=== PATIENT | male | born 1950 | race Caucasian/White ===

== ENCOUNTER 2021-03-07 14:48 | Emergency (ER) | payer OTHER ==
[~2021-03-07] VITALS: Ht 177.8 cm; Wt 122.5 kg
[~2021-03-07 14:48] MED LIST: ASPI81EC PO; LISI20 PO; SERT100 PO
== END 2021-03-07 17:29 | disposition home or self-care (01) ==
LOC: ER 14:48
DX: S43.014A Anterior dislocation of right humerus, initial encounter (principal); I10 Essential (primary) hypertension; Z79.82 Long term (current) use of aspirin; Z79.899 Other long term (current) drug therapy; W10.8XXA Fall (on) (from) other stairs and steps, initial encounter
CPT/HCPCS: 23650; 73020; 73030; 96374; 96375; 99284-25; J1170; J2060

== ENCOUNTER 2022-03-09 09:28 | Inpatient (IN) | payer OTHER, MEDICARE ==
[~2022-03-09] VITALS: Ht 180.3 cm; Wt 122.4 kg
[2022-03-09 09:46] LABS: BASOPHILS ABSOLUTE AUTO 0.04 K/mm3 (0.00-0.23); BASOPHILS PERCENT AUTO 0 % (0-2); EOSINOPHILS ABSOLUTE AUTO 0.02 K/mm3 (0.00-0.68); EOSINOPHILS PERCENT AUTO 0 % (0-6); Hematocrit 39.9 % (37.0-53.0); Hemoglobin 13.2 g/dL (13.5-17.5); IMMATURE GRAN ABSOLUTE AUTO 0.08 K/mm3 (0.00-0.10); IMMATURE GRAN PERCENT AUTO 1 % (0-1); LYMPHOCYTES ABSOLUTE AUTO 1.08 K/mm3 (0.84-5.20); LYMPHOCYTES PERCENT AUTO 6 % (21-46); MONOCYTES ABSOLUTE AUTO 1.02 K/mm3 (0.16-1.47); MONOCYTES PERCENT AUTO 6 % (4-13); Mean Corpuscular HGB 27.7 pg (26.0-34.0); Mean Corpuscular HGB Conc 33.1 g/dL (31.5-36.5); Mean Corpuscular Volume 84 fL (80-100); Mean Platelet Volume 9.3 fL (9.1-12.4); NEUTROPHILS ABSOLUTE AUTO 15.13 K/mm3 (1.96-9.15); NEUTROPHILS PERCENT AUTO 87 % (41-73); Platelet Count 306 K/mm3 (150-400); RDW Standard Deviation 36.6 fL (35.1-46.3); Red Blood Cell Count 4.77 M/mm3 (4.30-5.90); White Blood Cell Count 17.37 K/mm3 (4.00-11.30)
[2022-03-09 10:21] LABS: Albumin, Blood 2.9 g/dL (3.4-5.0); Albumin/Globulin Ratio 0.6 (0.8-1.8); Bilirubin, Total 1.1 mg/dL (0.1-1.0); Bun/Creatinine Ratio 22.2 (12.0-20.0); Calcium, Blood 9.1 mg/dL (8.5-10.1); Creatinine, Blood 1.35 mg/dL (0.60-1.20); Globulin, Blood 4.6 g/dL (2.2-4.0); Potassium, Blood 4.3 mmol/L (3.5-5.5); Total Protein, Blood 7.5 g/dL (6.4-8.2)
[2022-03-09] MEDS ORDERED: BUPR75 PO (10:21)
[2022-03-09] MEDS ORDERED: VITAMIN D31000 UNIT PO (10:21)
[2022-03-09 10:35] LABS: Influenza A, PCR NEGATIVE (NEGATIVE); Influenza B, PCR NEGATIVE (NEGATIVE); Resp Syncytial Virus, PCR NEGATIVE (NEGATIVE)
[2022-03-09 10:41] LABS: SARS-Cov-2 (COVID-19) PCR, MMC POSITIVE (NEGATIVE)
--- NOTE | 2022-03-09 19:14 | NUR ---
ASSUMED CARE A&OX4. PATIENT EFFECITVELY COMMUNICATES NEEDS. VSS. RR EVEN AND UNLABORED ON RA. AWAITING RT TO FIT CPAP MASK. STAND-BY ASSIT. IV TO THE RIGHT AC. NO ACUTE CONCERNS AT THIS TIME. THIS RN WILL CONTINUE TO CLOSELY MONITOR. CALL LIGHT WITHIN REACH. BED LOW AND LOCKED.
--- NOTE | 2022-03-09 19:58 | NUR ---
SHIFT SUMMARY PTN ADMIT FROM ER. PTN UNCOMFORTABLE WITH SARAH AND BACK PAIN, GIVEN TYLENOL, WHICH HE SAYS GENERALLY WORKS FOR HIM. PRESENT. DROPLET ISOLATION PRECAUTIONS IN PLACE FOR POSITIVE COVID. REPORT WAS PTN SATURATION AROUND 94% IN ER, SO NO OXYGEN WAS PLACED, CPAP WAS ORDERED FOR HS. PTN TAKEN DOWN FOR CAT SCAN. CONTINUE TO MONITOR.
--- NOTE | 2022-03-10 03:21 | NUR ---
ORTHOPEDIC TECH SUMMARY THE PATIENT IS A 71 YEAR-OLD MALE WITH A DIAGNOSIS OF COVID-19. PRECAUTIONS MAINTAINED. PATIENT IS A&OX4, AND EFFECITVELY COMMUNICATES NEEDS. LS DIMINSHED THROUGHOUT ALL HESTER. PATIENT IS OF LARGE BODY HABITUS. RR EVEN AND UNLABORED ON RA; HOWEVER, PATIENT DID NOT TOLERATE THE BIPAP PROVIDED TO HIM AND WAS PLACED ON 3L NC DURING HOURS OF SLEEP. NO ACUTE CONCERNS AT THIS TIME. BED LOW AND LOCKED. CALL LIGHT WITHIN REACH. THIS RN WILL CONTINUE TO CLOSELY MONITOR.
[2022-03-10 05:58] LABS: BASOPHILS ABSOLUTE AUTO 0.07 K/mm3 (0.00-0.23); BASOPHILS PERCENT AUTO 0 % (0-2); EOSINOPHILS ABSOLUTE AUTO 0.07 K/mm3 (0.00-0.68); EOSINOPHILS PERCENT AUTO 0 % (0-6); Hematocrit 38.3 % (37.0-53.0); Hemoglobin 12.8 g/dL (13.5-17.5); IMMATURE GRAN ABSOLUTE AUTO 0.11 K/mm3 (0.00-0.10); IMMATURE GRAN PERCENT AUTO 1 % (0-1); LYMPHOCYTES ABSOLUTE AUTO 1.46 K/mm3 (0.84-5.20); LYMPHOCYTES PERCENT AUTO 8 % (21-46); MONOCYTES ABSOLUTE AUTO 1.22 K/mm3 (0.16-1.47); MONOCYTES PERCENT AUTO 7 % (4-13); Mean Corpuscular HGB 27.9 pg (26.0-34.0); Mean Corpuscular HGB Conc 33.4 g/dL (31.5-36.5); Mean Corpuscular Volume 83 fL (80-100); Mean Platelet Volume 9.5 fL (9.1-12.4); NEUTROPHILS ABSOLUTE AUTO 15.05 K/mm3 (1.96-9.15); NEUTROPHILS PERCENT AUTO 84 % (41-73); Platelet Count 301 K/mm3 (150-400); RDW Coefficient Variation 12.2 % (11.7-14.2); Red Blood Cell Count 4.59 M/mm3 (4.30-5.90); White Blood Cell Count 17.98 K/mm3 (4.00-11.30)
[2022-03-10 06:26] LABS: Albumin, Blood 2.7 g/dL (3.4-5.0); Albumin/Globulin Ratio 0.6 (0.8-1.8); Bilirubin, Total 0.9 mg/dL (0.1-1.0); Bun/Creatinine Ratio 28.6 (12.0-20.0); Calcium, Blood 9.2 mg/dL (8.5-10.1); Creatinine, Blood 1.19 mg/dL (0.60-1.20); Globulin, Blood 4.4 g/dL (2.2-4.0); Potassium, Blood 4.1 mmol/L (3.5-5.5); Total Protein, Blood 7.1 g/dL (6.4-8.2)
--- NOTE | 2022-03-10 06:33 | NUR ---
COMMUNICATIONS EQUIPMENT OPERATOR EVENT SP02 DECREASED TO 82%. THIS RN FOUND PATIENT SITTING AT THE EDGE OF THE BED WITHOUT SUPPLEMENTAL O2. PATIENT REPORTED HE NEEDED TO USE THE RESTROOM. NC PLACED BACK ON PATIENT AND INCREASED TO 4L. RT NOTIFIED OF THIS. A BREATHING TREATMENT WAS REQUESTED. RT ADVISED THE PATIENT DON HIS CPAP. PATIENT REFUSES TO WEAR CPAP, HOWEVER. STATING, "IT'S TOO DRY. IT DRIES ME OUT". PATIENT SITTING IN AN UPRIGHT POSITION, TAKING DEEP BREATHS. BEDSIDE URINAL PROVIDED TO PREVENT FURTHER FATIGUE AND POOR OXYGENATION. SP02 INCREASED AND IS SUSTAINING AT 92%. THIS RN WILL CONTINUE TO CLOSELY MONITOR. PATIENT DENIES OTHER SYMPTOMS AT THIS TIME. BED LOW AND LOCKED. CALL LIGHT WITHIN REACH.
--- NOTE | 2022-03-10 17:43 | NUR ---
SHIFT SUMMARY PT A&OX4 AND IN PLEASENT MOOD T/O SHIFT. @ BEDSIDE DURING VISITING HOURS. SPUTUM SAMPLE COLLECTED AND PENDING. 4-5L NC-RA @ BASE. PT REFUSES TO USE CPAP @ HS, STATES "I CAN ONLY USE THE HUMIDIFIED ONE."-RT NOTIFIED. SBA. VSS. CALL LIGHT W/IN REACH. TOLERATING ORAL INTAKE WELL. PLANT TO START STERIODS FOR 10 DAYS.
--- NOTE | 2022-03-11 04:11 | NUR ---
SHIFT SUMMARY PATIENT HAD NO ACUTE CHANGES. AXO X 4 AND SBA. VSS/AFEBRILE. DENIES PAIN AND N/V. ON 4-5 L O2 NC. ON CONTINUOUS PULSE OXIMETRY STATING MOSTLY 88%-92%. WILL DESTAT TO 84% AT TIMES NOTING N/C NEEDED ADJUSTMENT OR PATIENT MOVING AROUND WITH BLUE TOOTH MONITOR. ENHANCED PRECAUTIONS COVID-19+. PIV REMAINS INTACT. CALL LIGHT IN REACH. BED IN LOWEST POSITION. WILL CONTINUE TO MONITOR UNTIL DAY SHIFT NURSE ASSUMES CARE.
--- NOTE | 2022-03-11 18:15 | NUR ---
SHIFT SUMMARY: PT A/O X 4, IND IN ROOM. PT DID DESAT TO 73% ON RA THIS AM DUE TO HIM TAKING HIS OXYGEN OFF WHILE USING RESTROOM. O2 PLACED BACK ON WHILE PT WAS IN BATHROOM BUT HAD DIFFICULTY RECOVERING AND WAS AT 83% ON 6 LPM VIA NC. PT HAD DYSPNEA AT REST. PT PLACED ON CPAP WITH 6 LPM BLEED IN UNTIL HE RECOVERED AND THEN PLACED ON 6 LPM VIA HIGH FLOW AND SATS WERE MAINTAINED AT 92-93% WHILE AT REST. THIS EVENING PT SATS DROPPED WHILE EATING DINNER TO 81%. PT UNABLE TO RECOVER WITH DEEP BREATHING AND SO O2 WAS INCREASED TO 9 LPM VIA HIGH FLOW NC AND SATS MAINTAINED AT 90%. PT DID NOT BECOME SYMPTOMATIC WITH SOB WITH SATS IN THE 80'S THIS EVENING. PT DID NOT HAVE ANY COMPLAINTS THROUGHOUT THE DAY. HE WAS OBSERVED WATCHING TV THROUGHOUT THE DAY, ALERT. PT EATING WELL. PLEASANT AND COOPERATIVE WITH CARE.
--- NOTE | 2022-03-11 23:02 | NUR ---
PATIENT STATING 85%-90% ON 6L O2 HIGH FLOW. DESTATS TO 82% AND RT NOTIFIED. PATIENT REPORTS OXYGEN TUBING MAY BE KINKED TO RT. PATIENT CONTINUE TO FLUCTUATE BETWEEN 85%-88% AT THIS TIME. RT AWARE. WCTM.
--- NOTE | 2022-03-12 04:36 | NUR ---
SHIFT SUMMARY PATIENT HAD NO ACUTE CHANGES. AXOX 4 AND INDEPENDENT IN ROOM. ON 7L-9L O2 HIGH FLOW STATING MOSTLY 88%-90%. REGINA DESTAT TO LOW TO MID 80'S AT TIMES. RT IN TO ASSESS. PIV REMAINS INTACT. DENIES PAIN AND N/V. COOPERATIVE WITH CARE. CALL LIGHT IN REACH. BED IN LOWEST POSITION. WILL CONTINUE TO MONITOR UNTIL DAY SHIFT NURSE ASSUMES CARE.
[2022-03-12 05:31] LABS: BASOPHILS ABSOLUTE AUTO 0.03 K/mm3 (0.00-0.23); BASOPHILS PERCENT AUTO 0 % (0-2); EOSINOPHILS ABSOLUTE AUTO 0.01 K/mm3 (0.00-0.68); EOSINOPHILS PERCENT AUTO 0 % (0-6); Hematocrit 37.9 % (37.0-53.0); Hemoglobin 12.5 g/dL (13.5-17.5); IMMATURE GRAN ABSOLUTE AUTO 0.17 K/mm3 (0.00-0.10); IMMATURE GRAN PERCENT AUTO 1 % (0-1); LYMPHOCYTES ABSOLUTE AUTO 1.11 K/mm3 (0.84-5.20); LYMPHOCYTES PERCENT AUTO 7 % (21-46); MONOCYTES ABSOLUTE AUTO 1.09 K/mm3 (0.16-1.47); MONOCYTES PERCENT AUTO 7 % (4-13); Mean Corpuscular HGB 27.6 pg (26.0-34.0); Mean Corpuscular Volume 84 fL (80-100); Mean Platelet Volume 9.7 fL (9.1-12.4); NEUTROPHILS ABSOLUTE AUTO 14.14 K/mm3 (1.96-9.15); NEUTROPHILS PERCENT AUTO 85 % (41-73); Platelet Count 313 K/mm3 (150-400); RDW Coefficient Variation 12.1 % (11.7-14.2); RDW Standard Deviation 37.2 fL (35.1-46.3); Red Blood Cell Count 4.53 M/mm3 (4.30-5.90); White Blood Cell Count 16.55 K/mm3 (4.00-11.30)
[2022-03-12 05:56] LABS: Bun/Creatinine Ratio 34.8 (12.0-20.0); Creatinine, Blood 1.12 mg/dL (0.60-1.20); Potassium, Blood 4.3 mmol/L (3.5-5.5)
--- NOTE | 2022-03-12 17:11 | NUR ---
SHIFT SUMMARY PTN DYSPNEA ON EXERTION, CHANGED TO HEATED HIGH FLOW WITH GOOD RESULT, SET AT 25L. MAINTAINING >90 O2, AND ABLE TO EAT AND TALK WITHOUT PROBLEMS. DROPLET ISOLATION PRECAUTIONS PER PROTOCOL FOR COVID. CONTINUE IV ANTIBIOTIC AND ANTIVIRAL MEDICATION. PRESENT DURING THIS SHIFT. CONTINUE TO FOLLOW.
--- NOTE | 2022-03-13 05:34 | NUR ---
UPKEEP WORKER SUMMARY: A&Ox4. PLEASANT AND COOPERATIVE WITH CARE. CALLS APPROPRIATELY AND ABLE TO COMMUNICATE NEEDS EFFECTIVELY. NO C/O PAIN OR DISCOMFORT. INDEPENDENT IN ROOM. GIVEN PRN APAP LAST NIGHT FOR LOW-GRADE FEVER. HI-GLOW HEATED 02 @45 WITH SOME EXERTIONAL DESATS NOTED. CONTINUOUS BI-OX. ENHANCED PRECAUTIONS D/T +COVID. NO ACUTE EVENTS T/O THE NIGHT. WILL REPORT TO ONCOMING RN.
[2022-03-13 05:46] LABS: Hemoglobin 12.3 g/dL (13.5-17.5); Mean Corpuscular HGB 27.8 pg (26.0-34.0); Mean Corpuscular HGB Conc 33.2 g/dL (31.5-36.5); Mean Corpuscular Volume 84 fL (80-100); Mean Platelet Volume 9.8 fL (9.1-12.4); Platelet Count 339 K/mm3 (150-400); RDW Coefficient Variation 12.1 % (11.7-14.2); RDW Standard Deviation 36.9 fL (35.1-46.3); Red Blood Cell Count 4.43 M/mm3 (4.30-5.90); White Blood Cell Count 16.66 K/mm3 (4.00-11.30)
[2022-03-13 06:12] LABS: Albumin, Blood 2.4 g/dL (3.4-5.0); Albumin/Globulin Ratio 0.6 (0.8-1.8); Bilirubin, Total 0.7 mg/dL (0.1-1.0); Bun/Creatinine Ratio 38.6 (12.0-20.0); C-REACTIVE PROTEIN, EXT RANGE 6.92 mg/dL (0.000-0.300); Calcium, Blood 8.8 mg/dL (8.5-10.1); Creatinine, Blood 1.14 mg/dL (0.60-1.20); Globulin, Blood 4.1 g/dL (2.2-4.0); Magnesium, Blood 2.3 mg/dL (1.6-2.4); Potassium, Blood 4.1 mmol/L (3.5-5.5); Total Protein, Blood 6.5 g/dL (6.4-8.2)
--- NOTE | 2022-03-13 08:00 | NUR ---
pt laying in bed on the phone, a/ox3, cooperative with care, follows commands well, denies pain, just sob, lungs are dim t/o, can auscultate more air movement in upper [place] than bases, resp even and mildly labored at rest, reports a productive cough of yellow sputum, currently on airvo at 45l, desats quickly with movement, hrr, no edema noted, ppp+1, cap refill <3sec, vs stable, afebrile, iv site is clear and patent, btx4, abd flat soft nontender, voids via urinal clear yellow urine, skin c/w/d, has an abrasion to 2nd left toe, maew, denies dizziness/ nausea, up indep, cydney, call light in reach.
--- NOTE | 2022-03-13 18:39 | NUR ---
pt has been maintaining sats pretty well today, sits up on the side of the bed to eat, does drop with any activty then recovers, no acute changes this shift, call light in reach.
[2022-03-14 05:43] LABS: Hematocrit 40.1 % (37.0-53.0); Hemoglobin 13.3 g/dL (13.5-17.5); Mean Corpuscular HGB 27.6 pg (26.0-34.0); Mean Corpuscular HGB Conc 33.2 g/dL (31.5-36.5); Mean Corpuscular Volume 83 fL (80-100); Mean Platelet Volume 9.3 fL (9.1-12.4); Platelet Count 394 K/mm3 (150-400); RDW Standard Deviation 36.5 fL (35.1-46.3); Red Blood Cell Count 4.82 M/mm3 (4.30-5.90); White Blood Cell Count 17.06 K/mm3 (4.00-11.30)
[2022-03-14 06:39] LABS: C-REACTIVE PROTEIN, EXT RANGE 6.53 mg/dL (0.000-0.300)
[2022-03-14 06:42] LABS: Albumin, Blood 2.6 g/dL (3.4-5.0); Albumin/Globulin Ratio 0.6 (0.8-1.8); Bilirubin, Total 0.6 mg/dL (0.1-1.0); Bun/Creatinine Ratio 34.5 (12.0-20.0); Calcium, Blood 9.1 mg/dL (8.5-10.1); Creatinine, Blood 1.16 mg/dL (0.60-1.20); Globulin, Blood 4.3 g/dL (2.2-4.0); Potassium, Blood 4.4 mmol/L (3.5-5.5); Total Protein, Blood 6.9 g/dL (6.4-8.2)
--- NOTE | 2022-03-14 07:28 | NUR ---
FLOOR SWEEPER SUMMARY: A&Ox4. PLEASANT AND COOPERATIVE WITH CARE. CALLS APPROPRIATELY AND ABLE TO COMMUNICATE NEEDS EFFECTIVELY. AMBULATES INDEPENDENTLY WITHIN ROOM BUT DOES EXPERIENCE DESATTING. HI-FLOW HEATED @ 75L/min PER RT DUE TO SATTING AROUND 88-90% FOR NIGHT, THEN LOWERED TO 40 AROUND 0600 DURING WHICH HE BEGAN DESATTING AND MAINTAINING AROUND 88%. CALLED SAURAV WITH RT WHO WAS DREW HOME. DAY SHIFT RT CAME AND STATED SHE WAS NOT GOING TO INCREASE O2 BECASUE DESATTING WAS ANTICIPATED. LET HER KNOW PROVIDER ORDERS WERE TO MAINTAIN SPO2 >92%; SHE STATED THAT IS NOT HOW IT IS DONE WITH COVID PATIENTS AND WAS GOING TO KEEP HIM AT 40 AND TO NOTIFY PROVIDER. DAY SHIFT RN NOTIFIED. DID HAVE SOME C/O NAUSEA T/O THE NIGHT HE ATTRIBUTED TO HIS DINNER; RESOLVED WITH A FEW SALTINES. NO C/O PAIN OR OTHER DISCOMFORT T/O THE NIGHT. VSS, THOUGH EXPERIENCING SOME TACHYPNEA, ESPECIALLY AFTER AMBULATING TO BATHROOM. WILL REPORT TO ONCOMING RN.
--- NOTE | 2022-03-14 19:28 | NUR ---
SHIFT SUMMARY PATIENT ALERT AND ORIENTED AND INDEPENDENT IN ROOM. AIRVO AT 40 L 65% FIO2. DESATS WITH MOVEMENT TO BATHROOM, TAKES A COUPLE MINUTES TO RECOVER. RT AWARE AND STATED FOR RN NOT TO TITRATE FIO2. TOLERATING DIET AND LIQUIDS. VOIDING WELL. ROUTINE STEROIDS AND ABX. SIGNIFICANT OTHER VISITED DURING AFTERNOON. PLAN TO CONTINUE SUPPORTIVE CARE OF COVID INFECTION. RT TO WEAN OXYGEN PATIENT TOLERATES.
--- NOTE | 2022-03-15 04:49 | NUR ---
SHIFT SUMMARY PT ALERT AND ORIENTED X 4. HR STABLE. BP STABLE, MAP ABOVE 65. NO CP OR PRESSURE REPORTED. OXYGEN SATURATION MAINTAINED ABOVE 92% ON 50L AND 70% FIO2 ON AIRVO. PT IND IN ROOM. REPORTS SARAH THIS AM, STATES HE HAS HAD "HEADACHES LIKE THIS BEFORE." MEDICATED WITH TYLENOL. PT CURRENLTY SLEEPING, CALL LIGHT WITHIN REACH. WILL CONT TO MONITOR UNTIL REPORT GIVEN TO DAYSHIFT RN.
[2022-03-15 05:36] LABS: Hematocrit 39.2 % (37.0-53.0); Hemoglobin 13.3 g/dL (13.5-17.5); Mean Corpuscular HGB 27.9 pg (26.0-34.0); Mean Corpuscular HGB Conc 33.9 g/dL (31.5-36.5); Mean Corpuscular Volume 82 fL (80-100); Mean Platelet Volume 9.6 fL (9.1-12.4); Platelet Count 396 K/mm3 (150-400); RDW Standard Deviation 36.5 fL (35.1-46.3); Red Blood Cell Count 4.76 M/mm3 (4.30-5.90); White Blood Cell Count 19.02 K/mm3 (4.00-11.30)
[2022-03-15 06:00] LABS: Albumin, Blood 2.5 g/dL (3.4-5.0); Albumin/Globulin Ratio 0.6 (0.8-1.8); Bilirubin, Total 0.8 mg/dL (0.1-1.0); Bun/Creatinine Ratio 35.7 (12.0-20.0); C-REACTIVE PROTEIN, EXT RANGE 7.73 mg/dL (0.000-0.300); Calcium, Blood 9.2 mg/dL (8.5-10.1); Creatinine, Blood 1.15 mg/dL (0.60-1.20); Globulin, Blood 4.5 g/dL (2.2-4.0); Potassium, Blood 4.6 mmol/L (3.5-5.5)
--- NOTE | 2022-03-15 18:46 | NUR ---
SHIFT SUMMARY: NO ACUTE EVENTS. ON AIRVO 50 L/MIN, 80% FIO2 WITH SATS 90-94%; FARMHAND COUGH. DESATS TO MID 80%'S WITH ACTIVITY. STATES HIS BREATHING IS BETTER. A&O X 4, PLEASANT. GOOD APPETITE. INDEPENDENT IN ROOM. DENIED PAIN.
--- NOTE | 2022-03-16 05:44 | NUR ---
SHIFT SUMMARY PATIENT ALERT AND ORIENTED. HAD NO COMPLAINTS OF PAIN OVERNIGHT. SOME SHORTNESS OF BREATH UPON EXERTION NOTED. NO ACUTE ISSUES NOTED OVERNIGHT. PATIENT REMAINS ON AIRVO, MAINTAINED BY RT. CALL LIGHT WITHIN REACH. REPORT GIVEN TO ONCOMING RN.
[2022-03-16 06:21] LABS: Hemoglobin 13.3 g/dL (13.5-17.5); Mean Corpuscular HGB 27.8 pg (26.0-34.0); Mean Corpuscular HGB Conc 33.3 g/dL (31.5-36.5); Mean Corpuscular Volume 84 fL (80-100); Mean Platelet Volume 9.6 fL (9.1-12.4); Platelet Count 394 K/mm3 (150-400); RDW Coefficient Variation 12.2 % (11.7-14.2); RDW Standard Deviation 37.2 fL (35.1-46.3); Red Blood Cell Count 4.79 M/mm3 (4.30-5.90); White Blood Cell Count 16.75 K/mm3 (4.00-11.30)
[2022-03-16 06:47] LABS: Albumin, Blood 2.4 g/dL (3.4-5.0); Albumin/Globulin Ratio 0.6 (0.8-1.8); Bilirubin, Total 0.6 mg/dL (0.1-1.0); Bun/Creatinine Ratio 35.3 (12.0-20.0); C-REACTIVE PROTEIN, EXT RANGE 4.8 mg/dL (0.000-0.300); Calcium, Blood 8.9 mg/dL (8.5-10.1); Creatinine, Blood 1.19 mg/dL (0.60-1.20); Globulin, Blood 4.3 g/dL (2.2-4.0); Potassium, Blood 4.4 mmol/L (3.5-5.5); Total Protein, Blood 6.7 g/dL (6.4-8.2)
--- NOTE | 2022-03-16 18:01 | NUR ---
SHIFT SUMMARY PT REMAINS ON O2 VIA AIRVO AT 55 L'S 78% FiO2. ON CONT BIOX SATS RANGE 88-93%. WILL DE-SAT WITH EXERTION BUT WILL REGAIN SATS >90% ONCE SETTLED BACK IN THE ROOM. 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 HE STATES HE HAS A VERY SMALL NASAL OPENING D/T ALL THE INJURIES & REPAIRS OVER THE YEARS. IS INDEPENDENT IN THE ROOM FOR RESTROOM USE. HAS A STRONG & STEADY GAIT. DENIES PAIN. VSS. APPETITE IS GOOD.
--- NOTE | 2022-03-17 05:09 | NUR ---
PATIENT ON HFNC AT SAME SETTINGS 50L/78%. NO ACUTE CHANGES OVERNIGHT
--- NOTE | 2022-03-17 18:35 | NUR ---
SHIFT SUMMARY REMAINS ON AIR VO AT 55L'S AND 78% FiO2. ON CONT BI-OX WITH SATS RANGING 90-96%. WILL DESAT INTO HIGH 80'S% WITH EXERTION. DENIES PAIN, STATES BREATHING FEELS A LITTLE BETTER TODAY. APPETITE IS GOOD. VSS, BP SOMEWHAT SOFT, HELD BP MEDS THIS AM. IS PLEASAMT & COOPERATIVE WITH ALL CARE. ANTHONY LIGHT ACCESSIBLE. CALLS APPROPRIATELY.
--- NOTE | 2022-03-18 04:25 | NUR ---
ELECTRICIAN CONSTRUCTOR SUPERVISOR SUMMARY PT A/OX4; PLEASANT AND COOPERATIVE. CONT ON AIRVO 55L W/78% FI02; CONT PULSE OX SHOWING SATS CONSISTANTLY >94%. PT IN BED T/O THE NIGHT; NO EXERTION AND NO EPISODES OF OXYGEN DESAT. VS REVIEWED AND STABLE. PT ABLE TO MAKE NEEDS KNOWN AND USES CALL LIGHT APPROPRIATELY. CALL LIGHT IN REACH.
[2022-03-18 05:26] LABS: Hemoglobin 13.8 g/dL (13.5-17.5); Mean Corpuscular HGB 27.6 pg (26.0-34.0); Mean Corpuscular HGB Conc 33.7 g/dL (31.5-36.5); Mean Corpuscular Volume 82 fL (80-100); Mean Platelet Volume 9.3 fL (9.1-12.4); Platelet Count 400 K/mm3 (150-400); RDW Coefficient Variation 12.1 % (11.7-14.2); White Blood Cell Count 17.73 K/mm3 (4.00-11.30)
[2022-03-18 06:28] LABS: Albumin, Blood 2.5 g/dL (3.4-5.0); Albumin/Globulin Ratio 0.5 (0.8-1.8); Bilirubin, Total 0.7 mg/dL (0.1-1.0); Bun/Creatinine Ratio 34.2 (12.0-20.0); C-REACTIVE PROTEIN, EXT RANGE 2.13 mg/dL (0.000-0.300); Calcium, Blood 9.1 mg/dL (8.5-10.1); Creatinine, Blood 1.17 mg/dL (0.60-1.20); Globulin, Blood 4.6 g/dL (2.2-4.0); Magnesium, Blood 2.5 mg/dL (1.6-2.4); Potassium, Blood 4.6 mmol/L (3.5-5.5); Total Protein, Blood 7.1 g/dL (6.4-8.2)
--- NOTE | 2022-03-18 08:19 | NUR ---
AIRVO RT ADJUSTED DOWN HIS LITER FLOW TO 45 AND HIS FiO2 TO 60%. SATS ARE HOVERING AROUND 93%.
--- NOTE | 2022-03-18 17:41 | NUR ---
SHIFT SUMMARY A&O X 4. REMAINS ON AIRVO AT 45L'S, 60% FiO2. ON CONT BI-OX WITH SATS RANGING 90-96%. IS INDEPENDENT IN THE ROOM FOR RESTROOM USE. APPETITE IS GOOD. VSS. BP REMAINS ON THE SOFT SIDE, TOLERATES IT WELL, WITH NO C/O OF DIZZINESS, LIGHTHEADEDNESS OR WEAKNESS. IS ON ZESTRIL 20 MG DAILY. PLAN IS LIKELY HOME WHEN CLINICALLY READY FOR DC.
--- NOTE | 2022-03-19 05:03 | NUR ---
MENTAL HEALTH WORKER SUMMARY A/OX4. NO ACUTE CHANGES. PT PLEASANT AND COOPERATIVE. ABLE TO MAKE NEEDS KNOWN. DISCUSSED SOFT BLOOD PRESSURE W/PT--PT REPORTS HE HAS BEEN ON BP MED/LISINOPRIL FOR 30+ YEARS; PT BELIEVES WRONG CUFF BEING USED. REMOVED LARGER CUFF FROM ROOM. PT AM BP 87/56 W/STANDARD CUFF PT ASYMPTOMATIC; WILL CONT T/MONITOR AND PASS ON T/DAY SHIFT NURSE. RT AT BEDSIDE; PT ON 45L 02 W/65% FIO2. PT SAT'S CONSISTANTLY >92%. CALL LIGHT IN REACH.
[2022-03-19 05:55] LABS: Creatinine, Blood 1.2 mg/dL (0.60-1.20); Potassium, Blood 4.3 mmol/L (3.5-5.5)
--- NOTE | 2022-03-19 14:43 | NUR ---
ASSUME CARE REPORT GIVEN BY BLANCO ZAMAN. ASSUMING CARE OF PTN AT THIS TIME. AGREE WITH SHIFT ASSESSMENT DOCUMENTED.
--- NOTE | 2022-03-19 19:31 | NUR ---
SHIFT SUMMARY PTN CONTINUES ENHANCED PRECAUTIONS FOR COVID, WITH POSITIVE TEST DONE 03/09. PTN ON AIRVO 45L, 65% FI02, MAINTAINNG >90% SATURATION. NO CHANGES NOTED THIS SHIFT. CONTINUE TO MONITOR.
--- NOTE | 2022-03-20 05:32 | NUR ---
DECAL TRANSFERRER SUMMARY PT A/OX4. INDEPENDENT IN ROOM. NO ACUTE CHANGES. PT WAS REQUESTING SLEEPING AID--NO MEDS GIVEN; SEE NURSE NOTE. PT ABLE TO MAKE NEEDS KNOWN. PT REMAINS ON AIRVO--RT AT PT BEDSIDE--PT ON 40L O2 WITH 40% FIO2; SATURATIONS 90-94%; SATS DROPPED TO 86% BRIEFLY WHEN UP TO USE URINAL. RECOVERED QUICKLY. CALL LIGHT IN REACH.
--- NOTE | 2022-03-20 05:35 | NUR ---
NURSE NOTE FROM 03/19/22 0309 PT REQUESTING SLEEP AID; STATES MELATONIN DOESN'T WORK. STATES DR NEWELL AWARE AND WAS TO ORDER SLEEP AID. CALL TO ELECTRONIC DATA INTERCHANGE SPECIALIST DR--NEW ORDER F/BENADRYL 50 MG PRN AT BEDTIME. PT REFUSED--SAID HE WOULD NOT TAKE BENADRYL. ADVISED PT TO LET ME KNOW IF RECONSIDER. ADVISED WOULD PASS INFO ON TO DAY SHIFT.
--- NOTE | 2022-03-20 16:23 | NUR ---
SHIFT SUMMARY A&OX4, COOPERATIVE WITH CARE. PT NO LONGER ON AIRVO. CURRENTLY ON 8L HIGH FLOW CANNULA WITH HUMIDIFICATION. RT VERBALIZED GOAL OF 7L BY END OF THE DAY. PT HAS BEEN MORE ACTIVE TODAY. CONTINUES TO BE ON COVID ISOLATION. DR NEWELL DC'D LISINOPRIL BUT PT STATED THAT HE HAS BEEN TAKING THAT MED FOR OVER 30 YRS AND IF HE DOESN'T HAVE THE MED HE WILL "GO CRAZY" AND HAS HAD "[place] PTSD LAST TIME THEY TOOK ME OFF." [facility] ORDERED 5MG LISINOPRIL WITH PARAMETER OF SYSTOLIC <105 AND 1 BAG OF NS TO INCREASE BP. FLUIDS STARTED BUT LISINOPRIL HELD D/T SYSTOLIC OF 101. MIRTAZAPINE ORDERED FOR TONIGHT TO HELP PT SLEEP. NO ACUTE CHANGES DURING THIS SHIFT. PT IS RESTING COMFORTABLY IN BED WITH CALL LIGHT IN REACH. DENIES ANY PAIN OR CONCERNS AT THS TIME.
--- NOTE | 2022-03-21 04:16 | NUR ---
SHIFT SUMMARY 71 YR M ADMITTED ON 03/10/22 FOR COVID PNEUMONIA. FULL CODE. NO ACUTE CHANGES THIS SHSIFT. IV FLUIDS COMPLETED AND IV REMOVED PER ORDERS. RT TITRATED O2 DOWN TO 7 L AND PT IS MAINTAINING SATS IN THE MID 90'S. PT HAS HAD NO C/O PAIN OR DISCOMFORT THIS SHIFT. HE HAS BEEN INDEPENDANT IN THE ROOM AND AMBULATES INDEPENDANTLY TO BATHROOM. COVID PRECAUTIONS STILL IN PLACE.
[2022-03-21 05:15] LABS: Hematocrit 40.5 % (37.0-53.0); Hemoglobin 13.9 g/dL (13.5-17.5); Mean Corpuscular HGB 28.1 pg (26.0-34.0); Mean Corpuscular HGB Conc 34.3 g/dL (31.5-36.5); Mean Corpuscular Volume 82 fL (80-100); Mean Platelet Volume 9.3 fL (9.1-12.4); Platelet Count 402 K/mm3 (150-400); RDW Coefficient Variation 12.1 % (11.7-14.2); Red Blood Cell Count 4.95 M/mm3 (4.30-5.90); White Blood Cell Count 17.39 K/mm3 (4.00-11.30)
[2022-03-21 05:44] LABS: Albumin, Blood 2.6 g/dL (3.4-5.0); Albumin/Globulin Ratio 0.6 (0.8-1.8); Bilirubin, Total 0.6 mg/dL (0.1-1.0); Bun/Creatinine Ratio 32.8 (12.0-20.0); Calcium, Blood 8.8 mg/dL (8.5-10.1); Creatinine, Blood 1.19 mg/dL (0.60-1.20); Globulin, Blood 4.3 g/dL (2.2-4.0); Total Protein, Blood 6.9 g/dL (6.4-8.2)
[2022-03-21 14:32] LABS: Hematocrit 41.9 % (37.0-53.0); Hemoglobin 14.1 g/dL (13.5-17.5); Mean Corpuscular HGB 27.9 pg (26.0-34.0); Mean Corpuscular HGB Conc 33.7 g/dL (31.5-36.5); Mean Corpuscular Volume 83 fL (80-100); Mean Platelet Volume 9.3 fL (9.1-12.4); Platelet Count 401 K/mm3 (150-400); RDW Coefficient Variation 12.3 % (11.7-14.2); RDW Standard Deviation 37.2 fL (35.1-46.3); Red Blood Cell Count 5.05 M/mm3 (4.30-5.90)
--- NOTE | 2022-03-21 17:02 | NUR ---
SHIFT SUMMARY A&OX4, COOPERATIVE WITH CARE. PT STARTED THE DAY ON 7L O2, WENT TO 5L AND TOLERATED A SHOWER WITH SATS REMAINING IN THE 90'S. PT DESATS WITH EXERTION AND PROLONGED CONVERSATION. DR. NEWELL HAD PLANS FOR DISCHARGE, BUT PT FAILED HOME 02 EVAL AND RT INCREASED PT'S O2 BACK TO 7L. PT DENIED ANY PAIN T/O THE SHIFT. HE IS RESTING COMFORTABLY WITH CALL LIGHT IN REACH. NO ACUTE CHANGES HAPPENED DURING THIS SHIFT.
--- NOTE | 2022-03-22 04:31 | NUR ---
SHIFT SUMMARY 71 YR M ADMITTED ON 03/10/22 FOR COVID PNEUMONIA. FULL CODE. NO ACUTE CHANGES THIS SHIFT. O2 HAS BEEN TITRATED DOWN TO 6 L FOR THIS ENTIRE SHIFT AND HIS STATS HAVE REMAINED STABLE IN THE MID 90'S. PT SLEPT FOR A GOOD PORTION OF THIS SHIFT AND IS PLEASANT AND COOPERATIVE WITH CARE.
[2022-03-22 05:43] LABS: Albumin, Blood 2.6 g/dL (3.4-5.0); Albumin/Globulin Ratio 0.6 (0.8-1.8); Bilirubin, Total 0.4 mg/dL (0.1-1.0); Bun/Creatinine Ratio 31.5 (12.0-20.0); Calcium, Blood 9.1 mg/dL (8.5-10.1); Creatinine, Blood 1.3 mg/dL (0.60-1.20); Globulin, Blood 4.1 g/dL (2.2-4.0); Potassium, Blood 4.4 mmol/L (3.5-5.5); Total Protein, Blood 6.7 g/dL (6.4-8.2)
--- NOTE | 2022-03-22 18:04 | NUR ---
SHIFT SUMMARY- PT IS A/O, PLESANT AND COOPERATIVE. EATING AND DRINKING WELL. HE HAD A HOME O2 EVAL THIS AFTERNOON AND DESATED WITH AMBULATION. DELAY HIS DISCHARGE PER DR. NEWELL FOR TODAY. HIS BED IS IN THE LOW POSITION AND CALL LIGHT IS WITIN REACH.
--- NOTE | 2022-03-23 04:20 | NUR ---
SHIFT SUMMARY 71 YR M ADMITTED ON 03/10/22 FOR COVID PNEUMONIA. FULL CODE. NO ACUTE CHANGES THIS SHIFT. PT WAS OFFICIALLY TAKEN OUT OF ENHANCED PRECAUTIONS THIS SHIFT. PLAN IS FOR AN ECHO TODAY (03/23/22). 02 SATS ARE MAINTAINING IN THE 90'S AFTER BEING TITRATED TO 4 L 02 LAST SHIFT. NO C/O PAIN OR DISCOMFORT THIS SHIFT. PT IS PLEASANT AND COOPERATIVE WITH CARE.
[2022-03-23 05:37] LABS: Hematocrit 40.8 % (37.0-53.0); Hemoglobin 13.7 g/dL (13.5-17.5); Mean Corpuscular HGB 28.1 pg (26.0-34.0); Mean Corpuscular HGB Conc 33.6 g/dL (31.5-36.5); Mean Corpuscular Volume 84 fL (80-100); Mean Platelet Volume 9.2 fL (9.1-12.4); Platelet Count 368 K/mm3 (150-400); RDW Standard Deviation 36.7 fL (35.1-46.3); Red Blood Cell Count 4.88 M/mm3 (4.30-5.90); White Blood Cell Count 16.34 K/mm3 (4.00-11.30)
[2022-03-23 06:02] LABS: Thyroid Stimulating Hormone 0.897 uIU/mL (0.360-4.800)
[2022-03-23 06:03] LABS: Albumin, Blood 2.7 g/dL (3.4-5.0); Albumin/Globulin Ratio 0.6 (0.8-1.8); Bilirubin, Total 0.5 mg/dL (0.1-1.0); Bun/Creatinine Ratio 35.1 (12.0-20.0); Calcium, Blood 9.1 mg/dL (8.5-10.1); Creatinine, Blood 1.11 mg/dL (0.60-1.20); Globulin, Blood 4.4 g/dL (2.2-4.0); Potassium, Blood 4.3 mmol/L (3.5-5.5); Total Protein, Blood 7.1 g/dL (6.4-8.2)
--- NOTE | 2022-03-23 19:42 | NUR ---
SHIFT SUMMARY- PT IS A/O, PLESANT AND COOPERATIVE. HE TOOK A SHOWER THIS SHIFT. IV PLACED FOR ECHO PREFORMED THIS SHIFT. BED IN THE LOW POSITION CALL LIGHT IS WITIN REACH. ISOLATION MAINTAINED
--- NOTE | 2022-03-24 07:08 | NUR ---
SHIFT SUMMARY A&O X4. VSS. ON 4L NC, SATTING AT 92-94%. INDEPENDENT IN ROOM. DENIES PAIN. PLEASANT AND COOPERATIVE WITH CARE. USES URINAL AT BEDSIDE. WILL CONTINUE TO MONITOR AND FOLLOW PLAN OF CARE.
[2022-03-24] MEDS ORDERED: LISI5 PO (11:21)
[2022-03-24] MEDS ORDERED: DECADRON4 M1 PO (11:23)
[2022-03-24] MEDS ORDERED: MIRT30 PO (11:24)
[2022-03-24] MEDS ORDERED: XARELTO15 M1 PO (11:25)
--- NOTE | 2022-03-24 18:06 | NUR ---
SHIFT SUMMARY PATIENT IS ALERT AND ORIENTED. PATIENT HAS A DISCHARGE ORDER AND WAS CANCELLED DUE TO HOME 02 EVALUATION (SEE RT NOTE). PATIENT IS STILL ON 4.5 LITERS NC, DESATS WITH ANY ACTIVITY. PATIENT HAS NOT COMPLAINED OF PAIN, NAUSEA OR VOMITTING THIS SHIFT. VITAL SIGNS REVIEWED. BED IN LOWEST AND LOCKED POSITION. CALL LIGHT IN PLACE. WILL MONITOR UNTIL SHIFT CHANGE.
--- NOTE | 2022-03-25 05:13 | NUR ---
SHIFT SUMMARY ALERT AND ORIENTED X4. INDEPENDENT IN ROOM. ON 4L NC SATTING IN THE LOW 90S. PATIENT FAILED HOME O2 EVAL ON . WILL BE EVALUATED AGAIN IN AM. NO NEW EVENT THIS SHIFT. WILL CONTINUE TO MONITOR.
--- NOTE | 2022-03-25 15:54 | NUR ---
SHIFT SUMMARY PATIENT IS ALERT AND ORIENTED. PATIENT IS ON 4L NC. NO ACUTE EVENTS THIS SHIFT. VITAL SIGNS REVIEWED. PATIENT IS IND IN ROOM. PATIENT HAS NOT COMPLAINED OF PAIN, NAUSEA, SOB OR VOMITTING THIS SHIFT. BED IN LOCKED AND LOWEST POSITION. CALL LIGHT IN PLACE. WILL MONITOR UNTIL SHIFT CHANGE.
[2022-03-26 07:04] LABS: Hematocrit 40.4 % (37.0-53.0); Hemoglobin 14.1 g/dL (13.5-17.5); Mean Corpuscular HGB Conc 34.9 g/dL (31.5-36.5); Mean Corpuscular Volume 83 fL (80-100); Mean Platelet Volume 9.6 fL (9.1-12.4); Platelet Count 325 K/mm3 (150-400); RDW Coefficient Variation 12.6 % (11.7-14.2); RDW Standard Deviation 37.9 fL (35.1-46.3); Red Blood Cell Count 4.87 M/mm3 (4.30-5.90); White Blood Cell Count 12.68 K/mm3 (4.00-11.30)
[2022-03-26 07:33] LABS: Albumin, Blood 2.8 g/dL (3.4-5.0); Albumin/Globulin Ratio 0.7 (0.8-1.8); Bilirubin, Total 0.5 mg/dL (0.1-1.0); Bun/Creatinine Ratio 31.8 (12.0-20.0); Calcium, Blood 8.8 mg/dL (8.5-10.1); Creatinine, Blood 1.29 mg/dL (0.60-1.20); Globulin, Blood 3.8 g/dL (2.2-4.0); Total Protein, Blood 6.6 g/dL (6.4-8.2)
--- NOTE | 2022-03-26 07:42 | NUR ---
SHIFT SUMMARY A&O X4. VSS. DENIES PAIN. STILL ON 4L NC. INDEPENDENT IN ROOM. NOTHING EVENTFUL THIS SHIFT. WILL CONTINUE TO MONITOR AND FOLLOW PLAN OF CARE.
--- NOTE | 2022-03-26 15:30 | NUR ---
SHIFT SUMMARY PATIENT IS ALERT AND ORIENTED. PATIENT HAS HAD NO ACUTE EVENTS THIS SHIFT. VITAL SIGNS REVIEWED. PATIENT IS STILL ON 4L. PATIENT IS TO BE UP FOR ALL MEALS. PATIENT STILL DESATS WITH ACTIVITY. PATIENT HAS NO COMPLAINTS OF PAIN, SOB, VOMITTING OR NAUSEA. BED IN LOWEST AND LOCKED POSITION. CALL LIGHT IN PLACE. WILL MONITOR UNTIL SHIFT CHANGE.
--- NOTE | 2022-03-27 03:08 | NUR ---
SHIFT SUMMARY NO OVERNIGHT EVENTS. PT REMAINS ON 4LO2, SPO2 91%-96%, DYSPNEA ON EXERTION. REPORTS MILD COUGH. PT INDPENEDNENT IN ROOM. DENIES ANY S/S OF DISTRESS, NO PAIN. CALL LIGHT IN REACH, ABLE TO MAKE NEEDS KNOWN.
--- NOTE | 2022-03-27 19:37 | NUR ---
PT DISCHARGED HOME AT 1510. DC INSTRUCTIONS AND EDUCATION MATERIAL EXPLAINED TO PT. NO NEW QUESTIONS OR CONCERNS. IV DC'd. PT TOLERATED WELL. PT DISCHARGED HOME WITH OXYGEN AND OXYGEN TANKS. ALL BELONGINGS SENT HOME WITH PT. PT TAKEN BY WHEELCHAIR TO WAITING VEHICLE.
== END 2022-03-27 15:21 | disposition home or self-care (01) | DRG 177 ==
LOC: ER 09:28 → MEDS 13:48 → ER 13:48 → MEDS 13:48 → ENPENDDIS 03-22 17:37 → MEDS 03-22 23:34
PROVIDERS: Emergency Medicine; Internal Medicine; Student in an Organized Health Care Education/Training Program; ADMIT Internal Medicine
PROC: 8E0ZXY6 Isolation (ICD-10-PCS; principal; 2022-03-10)
PROC: XW033E5 Introduction of Remdesivir Anti-infective into Peripheral Vein, Percutaneous Approach, New Technology Group 5 (ICD-10-PCS; 2022-03-10)
PROC: 3E0333Z Introduction of Anti-inflammatory into Peripheral Vein, Percutaneous Approach (ICD-10-PCS; 2022-03-11)
PROC: 3E0DX3Z Introduction of Anti-inflammatory into Mouth and Pharynx, External Approach (ICD-10-PCS; 2022-03-11)
PROC: 5A0935A Assistance with Respiratory Ventilation, Less than 24 Consecutive Hours, High Flow/Velocity Cannula (ICD-10-PCS; 2022-03-12)
DX: U07.1 COVID-19 (principal); J12.82 Pneumonia due to coronavirus disease 2019; J96.01 Acute respiratory failure with hypoxia; E66.2 Morbid (severe) obesity with alveolar hypoventilation; N17.9 Acute kidney failure, unspecified; Z68.42 Body mass index [BMI] 45.0-49.9, adult; E87.1 Hypo-osmolality and hyponatremia; F41.9 Anxiety disorder, unspecified; E88.09 Other disorders of plasma-protein metabolism, not elsewhere classified; I12.9 Hypertensive chronic kidney disease with stage 1 through stage 4 chronic kidney disease, or unspecified chronic kidney disease; R73.9 Hyperglycemia, unspecified; N18.30 Chronic kidney disease, stage 3 unspecified; T38.0X5A Adverse effect of glucocorticoids and synthetic analogues, initial encounter; G47.00 Insomnia, unspecified; Z79.82 Long term (current) use of aspirin; Z79.899 Other long term (current) drug therapy
CPT/HCPCS: 0241U; 36415; 71046; 71260; 80048; 80053; 83735; 83880; 84145; 84443; 84484; 85025; 85027; 85379; 86140; 87070; 87205; 93005; 93010; 94640; 94660; 94664; 94761; 94762; 96365; 96366; 96372; 96375; 96376; 97116; 97161; 97530; 99285-25; A9270; C8929; G0378; J0248; J0456; J1100; J1650; J7030; J7050; Q9957; Q9967